=== PATIENT | female | born 2000 | race Caucasian/White ===

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

== ENCOUNTER 2021-12-20 23:14 | Emergency (ER) | payer MEDICAID | END 2021-12-21 02:27 | disposition home or self-care (01) | LOC: MW.ED 23:14 | DX: O23.91 Unspecified genitourinary tract infection in pregnancy, first trimester (principal); Z3A.09 9 weeks gestation of pregnancy | CPT/HCPCS: 36415; 81001; 84702; 87086; 99283 ==

== ENCOUNTER 2022-02-24 23:40 | Emergency (ER) | payer MEDICAID | END 2022-02-25 03:35 | disposition home or self-care (01) | LOC: MW.ED 23:40 | DX: O99.892 Other specified diseases and conditions complicating childbirth (principal); R10.2 Pelvic and perineal pain; Z3A.18 18 weeks gestation of pregnancy; Z79.899 Other long term (current) drug therapy | CPT/HCPCS: 81003; 81025; 99284-25 ==

== ENCOUNTER 2022-06-30 08:32 | Inpatient (IN) | payer MEDICAID ==
[2022-06-30] MEDS ORDERED: Ampicillin 2 GM in Sodium Chloride 0.9% 100 ML IV ONE (09:30)
[2022-06-30] MEDS: Lactated Ringers 1,000 ML IV SCH ×3 (09:30→14:46)
[2022-06-30] MEDS ORDERED: Carboprost Tromethamine 250 MCG/1 ML Amp IM PRN (09:32)
[2022-06-30] MEDS ORDERED: Misoprostol 200 MCG Tab PO PRN (09:32)
[2022-06-30] MEDS ORDERED: Butorphanol 1 MG/ML SDV IVPUSH PRN (09:32)
[2022-06-30] MEDS ORDERED: Water For Irrigation,Sterile 1,000 ML Container IRR PRN (09:32)
[2022-06-30] MEDS ORDERED: Methylergonovine 0.2 MG/1 ML Amp IM PRN (09:32)
[2022-06-30] MEDS ORDERED: Sodium Chloride 0.9% 20 ML SDV IV PRN (09:32)
[2022-06-30] MEDS ORDERED: Ondansetron 4 MG/2 ML SDV IVPUSH PRN (09:32)
[2022-06-30] MEDS ORDERED: Lidocaine 1% 50 ML MDV INJECT PRN (09:32)
[2022-06-30] MEDS ORDERED: Tranexamic Acid 1,000 MG in Sodium Chloride 0.9% 100 ML IV PRN (09:32)
[2022-06-30] MEDS ORDERED: Sodium Chloride 0.9% 10 ML Syringe FLUSH PRN (09:32)
[2022-06-30] MEDS ORDERED: Sodium Chloride 0.9% 2.5 ML Syringe FLUSH PRN (09:32)
[2022-06-30] MEDS ORDERED: Oxytocin/0.9 % Sodium Chloride 30 UNIT/500 ML BAG IV SCH (09:45)
[2022-06-30] MEDS ORDERED: Betamethasone Acetate/Betamethasone Sod Phosphate 30 MG/5 ML MDV ONE (10:06)
[2022-06-30] MEDS ORDERED: Bupivacaine 0.5% 10 ML SDV ONE (13:36)
[2022-06-30] MEDS ORDERED: Ropivacaine/PF 400 MG/200 ML PCA ONE (13:36)
[2022-06-30] MEDS ORDERED: Phenylephrine HCl In 0.9% NaCl 1 MG/10 ML Vial IVPUSH PRN (14:09)
[2022-06-30] MEDS ORDERED: ePHEDrine 50 MG/ML SDV IVPUSH PRN ×2 (14:09)
[2022-06-30] MEDS ORDERED: Ropivacaine HCl/PF 400 MG in Premix Bag 1 BAG EPIDUR SCH (14:15)
[2022-06-30] MEDS ORDERED: Phenylephrine HCl In 0.9% NaCl 1 MG/10 ML Vial IVPUSH SCH (14:15)
[2022-06-30] MEDS: Ampicillin 1 GM in Sodium Chloride 0.9% 50 ML IV SCH ×3 (14:36→22:31)
[2022-07-01] MEDS ORDERED: Witch Hazel Medicated Pads 40/Jar TOP PRN (01:25)
[2022-07-01] MEDS ORDERED: Acetaminophen 500 MG Tab PO PRN (01:25)
[2022-07-01] MEDS ORDERED: oxyCODONE 5 MG Tab PO PRN (01:25)
[2022-07-01] MEDS ORDERED: Lanolin 100% Cream 7 GM Tube TOP PRN (01:25)
[2022-07-01] MEDS ORDERED: Benzocaine/Menthol 20%-0.5% Spray 78 GM Cannister TOP PRN (01:25)
[2022-07-01] MEDS ORDERED: Bisacodyl 10 MG Supp RECTAL PRN (01:25)
[2022-07-01] MEDS ORDERED: Docusate Sodium 100 MG Cap PO PRN (01:25)
[2022-07-01] MEDS ORDERED: Ibuprofen 400 MG Tab PO PRN (01:25)
[2022-07-01] MEDS: Ibuprofen 800 MG Tab PO PRN ×2 (04:11→16:32)
[2022-07-01] MEDS: Acetaminophen 500 MG Tab PO PRN ×2 (04:12→16:33)
== END 2022-07-02 12:15 | disposition home or self-care (01) | DRG 807 ==
LOC: MW.OBCHECK 08:32 → MW.OB 08:33 → MW.OBCHECK 09:30 → MW.OB 09:32 → OBSVTOIN 07-01 00:27 → MW.OB 07-01 04:30
PROVIDERS: ADMIT Obstetrics & Gynecology; ATTEND Obstetrics & Gynecology
PROC: 10E0XZZ Delivery of Products of Conception, External Approach (ICD-10-PCS; principal; 2022-07-01)
PROC: 0KQM0ZZ Repair Perineum Muscle, Open Approach (ICD-10-PCS; 2022-07-01)
PROC: 3E0R3BZ Introduction of Anesthetic Agent into Spinal Canal, Percutaneous Approach (ICD-10-PCS; 2022-07-01)
PROC: 00HU33Z Insertion of Infusion Device into Spinal Canal, Percutaneous Approach (ICD-10-PCS; 2022-07-01)
DX: O60.14X0 Preterm labor third trimester with preterm delivery third trimester, not applicable or unspecified (principal); Z37.0 Single live birth; Z3A.36 36 weeks gestation of pregnancy; O69.81X0 Labor and delivery complicated by cord around neck, without compression, not applicable or unspecified; O70.1 Second degree perineal laceration during delivery; Z20.822 Contact with and (suspected) exposure to COVID-19
CPT/HCPCS: 01967; 36415; 51702; 59025; 59409; 85014; 85018; 85027; 86592; 86850; 86900; 86901; 87653; A9270-GY; J0290; J0702; J2405; J2590; J2795; J3490; J7120; U0002

== ENCOUNTER 2022-10-09 23:30 | Emergency (ER) | payer MEDICAID ==
[2022-10-09] MEDS ORDERED: diphenhydrAMINE 50 MG/ML SDV IVPUSH ONE (23:35)
[2022-10-09] MEDS ORDERED: methylPREDNISolone Sodium Succinate 125 MG/2 ML SDV IVPUSH ONE (23:35)
== END 2022-10-10 00:46 | disposition home or self-care (01) ==
LOC: MW.ED 23:30
DX: T78.40XA Allergy, unspecified, initial encounter (principal)
CPT/HCPCS: 96374; 96375; 99282; J1200; J2930

== ENCOUNTER 2023-11-27 08:07 | Emergency (ER) | payer SELFPAY ==
[2023-11-27] MEDS: Metoclopramide 10 MG/2 ML SDV IVPUSH ONE (08:53)
[2023-11-27] MEDS: diphenhydrAMINE 50 MG/ML SDV IVPUSH ONE (08:53)
[2023-11-27] MEDS: Ondansetron 4 MG/2 ML SDV IVPUSH ONE (08:53)
[2023-11-27] MEDS: Sodium Chloride 0.9% 1,000 ML IV ONE (08:53)
[2023-11-27] MEDS: Ketorolac 30 MG/ML SDV IVPUSH ONE (08:53)
[2023-11-27 09:09] LABS: BASOPHILS ABSOLUTE AUTO 0.03 K/uL (0.00-0.20); BASOPHILS PERCENT AUTO 0.3 % (0.0-1.0); EOSINOPHILS ABSOLUTE AUTO 0.17 K/uL (0.00-0.45); EOSINOPHILS PERCENT AUTO 1.5 % (0.0-6.0); HEMATOCRIT 40.1 % (37.0-47.0); HEMOGLOBIN 13.8 g/dL (12.0-16.0); IMMATURE GRAN ABSOLUTE AUTO 0.03 K/uL (0.00-0.05); IMMATURE GRAN PERCENT AUTO 0.3 % (0.0-0.4); LYMPHOCYTES ABSOLUTE AUTO 1.98 K/uL (1.00-4.80); LYMPHOCYTES PERCENT AUTO 17.4 % (24.0-44.0); MEAN CORPUSCULAR HEMOGLOBIN 30.7 pg (28.0-32.0); MEAN CORPUSCULAR HGB CONC 34.4 g/dL (32.0-36.0); MEAN CORPUSCULAR VOLUME 89.3 fL (83.0-99.0); MEAN PLATELET VOLUME 9.5 fL (9.4-12.3); MONOCYTES ABSOLUTE AUTO 0.79 K/uL (0.00-0.80); MONOCYTES PERCENT AUTO 6.9 % (0.0-8.0); NEUTROPHILS ABSOLUTE AUTO 8.37 K/uL (1.80-7.70); NEUTROPHILS PERCENT AUTO 73.6 % (41.0-71.0); PLATELET COUNT,PLT 207 K/uL (150-400); RED BLOOD CELL COUNT 4.49 M/uL (4.10-5.30); WHITE BLOOD CELL COUNT,WBC 11.37 K/uL (3.9-11.3)
[2023-11-27 09:09] LABS: APPEARANCE,URINE SLT CLOUDY; BILIRUBIN,URINE NEGATIVE (NEGATIVE); COLOR,URINE YELLOW; GLUCOSE,URINE NEGATIVE (NEGATIVE); KETONES,URINE TRACE mg/dL (NEGATIVE); LEUKOCYTE ESTERASE,URINE NEGATIVE (NEGATIVE); NITRITE,URINE NEGATIVE (NEGATIVE); OCCULT BLOOD,URINE TRACE-INTACT (NEGATIVE); PROTEIN,URINE NEGATIVE (NEGATIVE); UROBILINOGEN,URINE 0.2 EU/dL (<2.0)
[2023-11-27 09:17] LABS: BACTERIA,URINE 2+ (NEGATIVE); EPITHELIAL CELLS,URINE MANY (NONE-FEW); RBC,URINE 0-3 (0-2/HPF)
[2023-11-27 09:18] LABS: MUCUS,URINE LIGHT (NONE-MOD)
[2023-11-27 09:43] LABS: A/G RATIO 0.8 (0.9-1.6); ALBUMIN 3.2 g/dL (3.4-5.0); BILIRUBIN TOTAL 1.1 mg/dL (0.2-1.0); CALCIUM 8.7 mg/dL (8.5-10.1); CREATININE 0.9 mg/dL (0.6-1.0); EST CRCL DRUG DOSING (CG) 80.94 mL/min
[2023-11-27 09:51] LABS: CORONAVIRUS COVID-19 NAA NEGATIVE (NEGATIVE); INFLUENZA A NAA NEGATIVE (NEGATIVE); INFLUENZA B NAA NEGATIVE (NEGATIVE)
== END 2023-11-27 10:20 | disposition home or self-care (01) ==
LOC: MW.ED 08:07
DX: S39.012A Strain of muscle, fascia and tendon of lower back, initial encounter (principal); J40 Bronchitis, not specified as acute or chronic; F17.210 Nicotine dependence, cigarettes, uncomplicated; Z79.2 Long term (current) use of antibiotics; Z75.8 Other problems related to medical facilities and other health care
CPT/HCPCS: 0240U; 36415; 80053; 81001; 81025; 85025; 96361; 96374; 96375; 99284; J1200; J1885; J2405; J2765; J7030